=== PATIENT | female | born 1950 | race Caucasian/White ===

== ENCOUNTER 2019-04-20 07:32 | Outpatient (CLI) | payer MEDICARE ==
--- NOTE | 2019-04-20 10:54 | CT ---
CT NECK WITH AND WITHOUT CONTRAST: (THYROID PROTOCOL) Date: 04/20/19 HISTORY: 68-year-old female with hypercalcemia. TECHNIQUE: IV contrast: 120 mL [id number]. Precontrast scan, 25 second postcontrast scan, and 65 second postcontrast scan, performed from 3 cm i nferior to the farzana to the hard palate. Coronal and sagittal reconstructions of postcontrast scans. FINDINGS: Atherosclerotic calcification of LAD. No thyromegaly. At the posterior aspect of the mid-lower pole o f the right lobe of the thyroid gland, there is an approximately 1.2 x 0.8 x 1.3 cm enhancing nodule that does not have intrinsic iodine. The enhancement pattern is heterogeneous, with areas of moderate patchy enhancement and small component of nonenhancement. The pattern of enhancement is not typical for a parathyroid adenoma, but the lack of intrinsic iodine would be typical for a thyroid adenoma (A xial images 43 of 89, series 5 and 6; sagittal image 91 of 180 series 605; coronal images 45 of 143, series 601 and 604). There are additional tiny bilateral thyroid nodules a few millimeters in size each. There is no other potential parathyroid adenoma visualized. IMPRESSION: 1. An approximately 13 mm heterogeneously enhancing nodule at the posterior aspect of the right lobe of the thyroid gland. Poor-intermediate candidate for parathyroid adenoma. There are features of thi s that are consistent with parathyroid adenoma and other features that are not consistent with parath yroid adenoma. 2. Recommend nuclear medicine sestamibi scan. 3. Coronary atherosclerosis due to calcified coronary lesion. ICD-10: I25.84. POS: JASWINDER
[2019-04-20] MEDS ORDERED: Iopamidol 370 76% 50 ML VIAL FS ONE (11:51)
[2019-04-20] MEDS ORDERED: Iopamidol 370 76% 100 ML VIAL ONE (11:51)
--- NOTE | 2019-04-20 13:07 | NM ---
EXAM: NM Parathyrd Planar W/Spect CT PROVIDED CLINICAL HISTORY: Hypercalcemia. COMPARISON: CT neck soft tissues obtained prior to this study on 04/20/2019. FINDINGS: Anterior medial and oblique images obtained from the level of the vertex to the upper chest were obta ined. SPECT imaging was also performed. There is normal uptake seen within the salivary glands bilaterally. There is uptake seen in each lobe of the thyroid gland. A small focus of asymmetric increased uptake is seen inferior to the left lobe of the thyroid gland w hich persists on the washout images with normal washout of the radiotracer from the thyroid gland. This is also seen on the SPECT images and is compatible with parathyroid adenoma. This does correlate with a small enhancing nodule seen inferior to the left lobe of thyroid gland on the CT scan of the neck. IMPRESSION: Focus of increased uptake of radiotracer inferior to the left lobe of thyroid gland likely correspond ing to a parathyroid adenoma. This also correlates with finding on CT scan of the neck.
== END 2019-04-20 07:33 | disposition home or self-care (01) ==
LOC: CT 07:32
PROVIDERS: ATTEND Otolaryngology Plastic Surgery within the Head & Neck
DX: E83.52 Hypercalcemia (principal); E04.1 Nontoxic single thyroid nodule; I25.84 Coronary atherosclerosis due to calcified coronary lesion
CPT/HCPCS: 70492; 78072; 82565; A9500; Q9967